=== PATIENT | male | born 1985 | race Caucasian/White ===

== ENCOUNTER 2017-02-03 23:15 | Emergency (ER) | payer OTHER | END 2017-02-04 00:15 | disposition left against medical advice (07) | LOC: ED 23:15 | DX: S61.411A Laceration without foreign body of right hand, initial encounter (principal); X58.XXXA Exposure to other specified factors, initial encounter; Y93.89 Activity, other specified; Y92.89 Other specified places as the place of occurrence of the external cause; Y99.8 Other external cause status | CPT/HCPCS: A4570 ==

== ENCOUNTER 2017-02-04 00:11 | Emergency (ER) | payer SELFPAY ==
[2017-02-04 02:05] VITALS: BP 142/100
== END 2017-02-04 02:05 | disposition other institution (70) ==
LOC: ED 00:11
DX: S61.412A Laceration without foreign body of left hand, initial encounter (principal); W26.0XXA Contact with knife, initial encounter; Y93.89 Activity, other specified; Y99.8 Other external cause status; Y92.89 Other specified places as the place of occurrence of the external cause
CPT/HCPCS: 90715; J2001

== ENCOUNTER 2017-02-04 00:11 | Emergency (ER) | payer OTHER | END 2017-02-04 02:05 | disposition other institution (70) | LOC: ED 00:11 | DX: Z02.89 Encounter for other administrative examinations (principal); S61.412A Laceration without foreign body of left hand, initial encounter; W26.0XXA Contact with knife, initial encounter; Y93.89 Activity, other specified; Y99.8 Other external cause status; Y92.89 Other specified places as the place of occurrence of the external cause ==